=== PATIENT | male | born 1955 | race Caucasian/White ===

== ENCOUNTER 2025-05-19 10:24 | Emergency (ER) | payer MEDICARE, MEDICAID, SELFPAY ==
--- OUTSIDE RECORDS SUMMARY | 2025-04-10 10:36 | XMS_ITS | Continuity of Care Document ---
Author Organization [facility] in Address [address] [place] [address] Phone Care Team Providers Care Supervisor Alteration Workroom Name Role Phone Lab/Path Lab, Lab Unavailable Unavailable Allergies, Adverse Reactions, Alerts Substance Reaction Status Criticality No Known Allergies Active No Inform ation Medications Medication Instructions Dosage Effective Dates (start - stop) Status Comments metoprolol tartrate 25 mg tablet take 1 tablet by oral route 2 times every day 25 MG - Active lisinopril 40 mg tablet take 1 tablet by oral route every day 40 MG - Active famotidine 40 mg tablet take 1 tablet by oral route every day at bedtime 40 MG - Active amlodipine 5 mg tablet take 1 tablet (5MG) by oral route twice daily - Active Procedures Procedure Date ROUTINE VENIPUNCTURE NATRIURETIC PEPTIDE OFFICE ESTABLISHED-LEVEL 3-LOW TO MODERA TE SEVERIT REVIEW OF MEDS BY DOCTOR OR PHARMACIST J MED LIST DOCUMENTED IN EMR MOST RECENT SYSTOLIC BLOOD PRESSURE 130- 139 [facility] DIASTOLIC BLOOD PRESSURE 80-89 [facility] VISIT COMPLEXITY INHERENT TO AN E&M VISI T HEMOGLOBIN;GLYCOSYLATED AIC MOST RECENT A1C LEVEL LESS THAN 7 PHOSPHORUS PHOS- PHATE BLOOD PARATHORMONE PARATH- YROID HORMONE, COLBY LAB/LIPID PROFILE VITAMIN D, [id number] SCREENING PSA MICROALBUMIN,WESTLEY.,URINE LAB/CREATININE, URINE OFFICE/OUTPATIENT VISIT, EST REVIEW OF MEDS BY DOCTOR OR PHARMACIST J MED LIST DOCUMENTED IN EMR Systolic BP >= 140 Diastolic BP < 80 ANNUAL WELLNESS VISIT;SUBSEQUENT VISIT J BLOOD COUNT; HEMOGRAM AND PLATELET COUNT , AUTOMAT METABOLIC PANEL TOTAL CA ROUTINE VENIPUNCTURE COLORECTAL CANCER SCREENING; COLONOSOPY, NOT HIGH ROUTINE VENIPUNCTURE HEMOGLOBIN;GLYCOSYLATED AIC MOST RECENT A1C LEVEL LESS THAN 7 METABOLIC PANEL TOTAL CA OFFICE ESTABLISHED-LEVEL 3-LOW TO MODERA TE SEVERIT REVIEW OF MEDS BY DOCTOR OR PHARMACIST N MED LIST DOCUMENTED IN EMR Systolic BP < 130 Diastolic BP < 80 VISIT COMPLEXITY INHERENT TO AN E&M VISI T HEMOGLOBIN;GLYCOSYLATED AIC MOST RECENT A1C LEVEL LESS THAN 7 METABOLIC PANEL TOTAL CA ROUTINE VENIPUNCTURE ANNUAL WELLNESS VISIT;SUBSEQUENT VISIT M OFFICE/OUTPATIENT VISIT, EST REVIEW OF MEDS BY DOCTOR OR PHARMACIST M MED LIST DOCUMENTED IN EMR Systolic BP >= 130 and <= 140 Diastolic BP >= 80 and <= 90 OFFICE ESTABLISHED-LEVEL 3-LOW TO MODERA TE SEVERIT REVIEW OF MEDS BY DOCTOR OR PHARMACIST N ov MED LIST DOCUMENTED IN EMR Systolic BP < 130 Diastolic BP < 80 OFFICE ESTABLISHED-LEVEL 3-LOW TO MODERA TE SEVERIT REVIEW OF MEDS BY DOCTOR OR PHARMACIST N ov MED LIST DOCUMENTED IN EMR Systolic BP < 130 Diastolic BP < 80 ELI-IMPACTED CERUMEN ONE OR BOTH EARS N OFFICE/OUTPATIENT VISIT, EST REVIEW OF MEDS BY DOCTOR OR PHARMACIST N MED LIST DOCUMENTED IN EMR Systolic BP < 130 Diastolic BP >= 80 and <= 90 IRON, TOTAL TRANSFERRIN METABOLIC PANEL TOTAL CA FERRITIN,SERUM,COLBY URIC ACID BLOOD, CHEMICAL ROUTINE VENIPUNCTURE OFFICE/OUTPATIENT VISIT, EST REVIEW OF MEDS BY DOCTOR OR PHARMACIST O MED LIST DOCUMENTED IN EMR Systolic BP < 130 Diastolic BP < 80 HEP C SCREEN HIGH RISK/OTHER BLOOD COUNT; HEMOGRAM AND PLATELET COUNT , AUTOMAT LAB/LIPID PROFILE COMPLETE METABOLIC PANEL HEMOGLOBIN;GLYCOSYLATED AIC MOST RECENT A1C LEVEL LESS THAN 7 PHOSPHORUS PHOS- PHATE BLOOD NATRIURETIC PEPTIDE URIC ACID BLOOD, CHEMICAL MICROALBUMIN,WESTLEY.,URINE PARATHORMONE PARATH- YROID HORMONE, COLBY VITAMIN D, [id number] ROUTINE VENIPUNCTURE ANNUAL WELLNESS VISIT;INITIAL VISIT OFFICE/OUTPATIENT VISIT, EST REVIEW OF MEDS BY DOCTOR OR PHARMACIST S MED LIST DOCUMENTED IN EMR Systolic BP > 140 Diastolic BP < 80 OFFICE/OUTPATIENT VISIT, EST REVIEW OF MEDS BY DOCTOR OR PHARMACIST S MED LIST DOCUMENTED IN EMR Systolic BP >= 140 mmHg Diastolic BP < 90 mmHg ECHOGRAPHY, RETROPERITONEALB-SCAN,OR TELLY L TIME;COM SCREENING PSA LAB/LIPID PROFILE COMPLETE METABOLIC PANEL HEMOGLOBIN;GLYCOSYLATED AIC MOST RECENT A1C LEVEL WITHIN 12 MONTHS L ESS THAN 7 ADMINISTRATION FLU- MEDICARE FLUZONE HD HIGH DOSE PRE FILLED SYRINGE REVIEW OF MEDS BY DOCTOR OR PHARMACIST N Diastolic BP < 90 mmHg MED LIST DOCUMENTED IN EMR Systolic BP < 140 mmHg OFFICE/OUTPATIENT VISIT, EST OFFICE/OUTPATIENT VISIT, EST Systolic BP >= 130 and <= 140 Diastolic BP >= 80 and <= 90 URINALYSIS, AUTOMATED, WITH MICROSCOPY M OFFICE ESTABLISHED-LEVEL 3-LOW TO MODERA TE SEVERIT ROUTINE VENIPUNCTURE METABOLIC PANEL TOTAL CA PHOSPHORUS PHOS- PHATE BLOOD PARATHORMONE PARATH- YROID HORMONE, COLBY HEMOGLOBIN;GLYCOSYLATED AIC VITAMIN D, [id number] MOST RECENT A1C LEVEL WITHIN 12 MONTHS L ESS THAN 7 CULTURE BACTERIAL;AEROBIC ISOLATE ADDITI ONAL METHO LAB/URINE CULTURE OFFICE/OUTPATIENT VISIT, EST Systolic BP >= 130 and <= 140 2 Diastolic BP >= 80 and <= 90 URINALYSIS, AUTOMATED, WITH MICROSCOPY J SENSITIVITY STUDIES MICROTITER (MIC0 Sep CULTURE BACTERIAL;AEROBIC ISOLATE ADDITI ONAL METHO LAB/URINE CULTURE OFFICE-NEW, LEVEL 3-MODERATE Systolic BP > 140 Diastolic BP >= 80 and <= 90 MEASUREMENT OF POST-VOIDING RESIDUAL URI NE URINALYSIS W/O MICROSCOPYAUTOMATED CORONAVIRUS (COVID-19) SENSITIVITY STUDIES MICROTITER (MIC0 Aug LAB/URINE CULTURE CULTURE BACTERIAL;AEROBIC ISOLATE ADDITI ONAL METHO OFFICE ESTABLISHED-LEVEL 3-LOW TO MODERA TE SEVERIT Systolic BP >= 130 and <= 140 Diastolic BP >= 80 and <= 90 ELECTROCARD ROUTINE ECG AT LEAST 12 LEAD S BLOOD COUNT; HEMOGRAM AND PLATELET COUNT , AUTOMAT COMPLETE METABOLIC PANEL LAB/LIPID PROFILE TSH PROSTATE SPECIFIC ANTIGEN (PSA) 021 ROUTINE VENIPUNCTURE URINALYSIS W/O MICROSCOPYAUTOMATED OFFICE-NEW, LEVEL 3-MODERATE Systolic BP > 140 Diastolic BP >= 80 and <= 90 OFFICE ESTABLISHED-LEVEL 3-LOW TO MODERA TE SEVERIT X-RAY CHEST;SINGLE VIEW; TECH ONLY RADIOLOGIC EXAMINATION,CHEST:SINGLE VIEW , FRONTAL; OFFICE ESTABLISHED-LEVEL 3-LOW TO MODERA TE SEVERIT ROYA RETURN TO WORK PHYSICAL ROUTINE VENIPUNCTURE BASIC METABOLIC PANEL BLOOD COUNT; HEMOGRAM AND PLATELET COUNT , AUTOMAT PROSTATE SPECIFIC ANTIGEN (PSA) 013 THYROXINE;TOTAL TSH X-RAY CHEST;SINGLE VIEW; TECH ONLY RADIOLOGIC EXAMINATION,CHEST:SINGLE VIEW , FRONTAL; OFFICE ESTABLISHED-LEVEL 3-LOW TO MODERA TE SEVERIT AEROSOL OR VAPOR INHALATIONFOR SPUTUM MO BILIZATION ROUTINE VENIPUNCTURE BASIC METABOLIC PANEL ECHOGR SFT-TIS HEAD&NEC B-SCAN&/RE-LANNY W /IMAGE ROUTINE VENIPUNCTURE URINALYSIS W/O MICROSCOPYAUTOMATED BLOOD COUNT; HEMOGRAM AND PLATELET COUNT , AUTOMAT COMPLETE METABOLIC PANEL LAB/LIPID PROFILE TSH PROSTATE SPECIFIC ANTIGEN (PSA) 012 Advance Directives Directive Yes / No Effective Date File Name No Information Encounters Encounter Description Practice Location Reason(s) For Visit Diagnoses Date Provider Providers Copied on Encounter [facility], [address] [place] [address], [id number] , tel: [phone] [facility] [place] - 892 No Information 5 Lab/Path Lab Lab. . Referring Provider: Hari Byrne, [address], [place], [address]. tel:[phone] [place] [address], [address] [place] [address], [id number] , tel: [phone] [facility] - 858 No Information 5 Lab/Path Lab Lab. . Referring Provider: Hari Byrne, [address], [place], [address]. tel:[phone] OFFICE ESTABLISHED- LEVEL 3-LOW TO MODERATE SEVERIT [facility], [address] [place] [address], [id number] , tel: [phone] [facility] [place] - 893 .1 month (chief complaint) Essential (primary) hypertension Left atrial enlargementS hortness of breath 5 Skyler Walters. [address], [place], [id number], [place]. tel:[phone] Referring Provider: Hari Byrne, [address], [place], [address]. tel:[phone] [place] [address], [address] [place] [address], [id number] , [place] tel: [phone] [facility] - 858 No Information 5 Lab/Path Lab Lab. . Referring Provider: Hari Byrne, [address], [place], [address]. tel: [phone] OFFICE/OUTPA TIENT VISIT, EST [facility], [address] [place] [address], [place], [place], [id number] , [place] tel: [phone] [facility] [place] - 892 . 6 month (chief complaint) Impaired fasting glucoseMorbi d (severe) obesity due to excess caloriesEsse ntial (primary) hypertension Chronic kidney disease, stage 3aScreening PSA (prostate specific antigen) 5 Skyler Walters. [address], [place], [id number], [place]. tel: [phone] Referring Provider: Hari Byrne, [address] [place], [address]. tel: [phone] [place] [address], [address] [place] [address], [place], [place], [id number] , [place] tel: [phone] [facility] [place] - 892 . Medicare Wellness (chief complaint)[facility] preventive (chief complaint) Medicare annual wellness visit, subsequentCh ronic kidney disease, stage 3aMorbid (severe) obesity due to excess caloriesNSVT (nonsustaine d ventricular tachycardia) 5 Edvin Rivera. [address], [place], [id number], [place]. tel: [phone] Referring Provider: Hari Byrne, [address] [place], [address]. tel: [phone] [place] [address], [address] [place] [address], [place], [place], [id number] , [place] tel: [phone] [facility] [place] - 890 No Information 5 Skyler Walters. [address], [place], [id number], [place]. tel: [phone] [facility], [address] [facility], [place], [place], [id number] , [place] tel:[phone] [facility] - 858 No Information 4 Lab/Path Lab Lab. . Referring Provider: Mariusz Tyson, [address] [place] [address], [address]. tel: [phone] [facility], [address] [place] [address], [place], [place], [id number] , [place] tel:[phone] [facility] - 858 No Information 4 Lab/Path Lab Lab. . Referring Provider: Mariusz Tyson, [address] [place], [address]. tel: [phone] [facility], [address] [place] [address], [id number] , [place] tel: [facility] - 851 No Information 4 Heathchidiyaz Dunaway. [address] [place] [address], [place], [place], [id number], [place]. tel: [phone] Referring Provider: Emelyn Bailey, [address] [place] [address], [place], [address]. tel:[phone] [facility], [address] [place] [address], [place], [place], [id number] , [place] tel:[phone] [facility] [place] - 2 No Information 4 Lab/Path Lab Lab. . Referring Provider: Hari Byrne, [address], [place], [address]. tel:[phone] [facility], [address] [place] [address], [place], [place], [id number] , [place] tel:[phone] [facility] - 858 No Information 4 Lab/Path Lab Lab. . Referring Provider: Hari Byrne, [address], [place], [address]. tel:[phone] [facility] OFFICE ESTABLISHED- LEVEL 3-LOW TO MODERATE SEVERIT [facility], [address] [place] [address], [id number] , [place] tel: [phone] [facility] [place] - 892 . refill (chief complaint) Impaired fasting glucoseMorbi d (severe) obesity due to excess caloriesScre ening PSA (prostate specific antigen) 4 Skyler Walters. [address], [place], [id number], [place]. tel:[phone] Referring Provider: Hari Byrne, [address], [place], [address]. tel:[phone] [place] [address], [address] [place] [address], [id number] , [place] tel: [phone] [facility] - 858 No Information 4 Lab/Path Lab Lab. . Referring Provider: Hari Byrne, [address], [place], [address]. tel:[phone] [place] [address], [address] [place] [address], [id number] , [place] tel: [phone] [facility] [place] - 891 No Information 4 Lab/Path Lab Lab. . Referring Provider: Hari Byrne, [address], [place], [address]. tel:[phone] [place] [address], [address] [place] [address], [place], [id number] , [place] tel:[phone] [facility] [place] - 898 .MW (chief complaint) Chronic kidney disease, stage 3aScreening PSA (prostate specific antigen)[facility] annual wellness visit, subsequent 4 David Rivera. [address], [place], [id number], [place]. tel:[phone] Referring Provider: Hari Byrne, [address], [place], [address]. tel:[phone] OFFICE/OUTPA TIENT VISIT, [facility], [address] [place] [address], [id number] , [place] tel: [phone] [facility] [place] - 892 .f/u HTN (chief complaint) Essential (primary) hypertension Chronic kidney disease, stage 3aImpaired fasting glucose 4 Skyler Walters. [address], [place], [place], [id number], [place]. tel:[phone] Referring Provider: Hari Byrne, [address], [place], [address]. tel:[phone] OFFICE ESTABLISHED- LEVEL 3-LOW TO MODERATE [facility], [address] [place] [address], [id number] , [place] tel: [phone] [facility] [place] - 892 .2 week f/u right ear (chief complaint) Other otitis externa, right ear 3 Skyler Hari. [address], [place], [id number], [place]. tel:[phone] Referring Provider: Hari Byrne, [address], [place], [address]. tel:[phone] OFFICE ESTABLISHED- LEVEL 3-LOW TO MODERATE [facility], [address] [place] [address], [id number] , [place] tel: [phone] [facility] [place] - 892 . ears (chief complaint) Other otitis externa, right ear 3 Skyler Hari. [address], [place], [id number], [place]. tel:[phone] Referring Provider: Hari Byrne, [address], [place], [address]. tel:[phone] [place] [address], [address] [place] [address], [id number] , [place] tel: [phone] [facility] [place] - 897 . right ear pain (chief complaint) Impacted cerumen, right ear 3 Skyler Walters. [address], [place], [id number], [place]. tel:[phone] Referring Provider: Hari Byrne, [address], [place], [address]. tel:[phone] OFFICE/OUTPA TIENT VISIT, [facility], [address] [place] [address], [place], [place], [id number] , [place] tel: [phone] [facility] - 659 .right ear pain (chief complaint) Right otitis media, unspecified otitis media typeAcute diffuse otitis externa of right ear 3 Anoop Hurley. [address], [place], [id number], [place]. tel:[phone] Referring Provider: Hari Byrne, [address], [place], [address]. tel:[phone] [place] [address] and [facility], [address] [place] [address], [id number] , [place] tel: [phone] [facility] - 858 No Information 3 Lab/Path Lab Lab. . Referring Provider: Hari Byrne, [address], [place], [address]. tel:[phone] [place] [address] and [facility], [address] [place] [address], [id number] , [place] tel: [phone] [facility] [place] - 118 No Information 3 Lab/Path Lab Lab. . Referring Provider: Hari Byrne, [address], [place], [address]. tel:[phone] OFFICE/OUTPA TIENT VISIT, EST [facility], [address] [place] [address], [id number] , [place] tel:[phone] [facility] [place] - a (chief complaint) GoutChronic kidney disease, stage 3aEssential (primary) hypertension 3 Skyler Walters. [address], [place], [id number], [place]. tel: [phone] Referring Provider: Hari Byrne, [address], [place], [address]. tel: [address] [place] [address] and [facility], [address] [place] [address], [id number] , [place] tel:[phone] [facility] - 858 No Information 3 Lab/Path Lab Lab. . Referring Provider: Juliet Davalos, [address], [place], [address]. tel: [address] [place] [address] and [facility], [address] [place] [address], [id number] , [place] tel:[phone] [facility] - 858 No Information 3 Lab/Path Lab Lab. . Referring Provider: Hari Byrne, [address], [place], [address]. tel: [address] [place] [address] and [facility], [address] [place] [address], [id number] , [place] tel:[phone] [facility] [place] - No Information 3 Lab/Path Lab Lab. . Referring Provider: Juliet Davalos, [address], [place], [address]. tel: [address] [place] [address] and [facility], [address] [place] [address], [id number] , [place] tel:[phone] [facility] [place] - 892 a Medicare Wellness. (chief complaint) Unspecified osteoarthrit is, unspecified siteEssentia l (primary) hypertension Chronic kidney disease, stage 3aImpaired fasting glucoseNeed for hepatitis C screening testMorbid (severe) obesity [facility] annual [facility], initial Sep- 3 Anoop Hurley. [address], [place], [id number], [place]. tel:[phone] Referring Provider: Hari Byrne, [address], [place], [address]. tel:[phone] OFFICE/OUTPA TIENT VISIT, [facility], [address] [place] [address], [id number] , [place] tel: [phone] [facility] [place] - 669 .medication concerns (chief complaint) Essential (primary) hypertension Impaired fasting glucoseChron ic kidney disease, stage 3aGoutShortn ess of breathRectal bleed Sep- 3 Skyler Walters. [address], [place], [id number], [place]. tel:[phone] Referring Provider: Hari Byrne, [address], [place], [address]. tel:[phone] OFFICE/OUTPA TIENT VISIT, [facility], [address] [place] [address], [id number] , [place] tel: [phone] [facility] [place] - 564 . 10 month checkup (chief complaint) Essential (primary) hypertension Shortness of breathGoutIn somniaRectal bleed Sep-0 3 Skyler Walters. [address], [place], [id number], [place]. tel:[phone] Referring Provider: Hari Byrne, [address], [place], [address]. tel:[phone] [place] [address], [address] [place] [address], [id number] , [place] tel: [phone] [facility] - 888 No Information 2 [facility] . . Referring Provider: Hari Byrne, [address], [place], [address]. tel:[phone] [place] [address], [address] [place] [address], [place], [place], [id number] , [place] tel: [phone] [facility] - 858 No Information 2 Lab/Path Lab Lab. . Referring Provider: Hari Byrne, [address], [place], [address]. tel:[phone] OFFICE/OUTPA TIENT VISIT, [facility], [address] [place] [address], [place], [place], [id number] , [place] tel: [phone] [facility] [place] - 256 . med refills (chief complaint) Impaired fasting glucoseChron ic kidney disease, stage 3aEssential (primary) hypertension Encounter for screening for malignant neoplasm of prostate 2 Skyler Walters. [address], [place], [id number], [place]. tel:[phone] Referring Provider: Hari Byrne, [address], [place], [address]. tel:[phone] OFFICE/OUTPA TIENT VISIT, [facility], [address] [place] [address], [place], [place], [id number] , [place] tel: [phone] [facility] [place] - 078 . a (chief complaint) Impaired fasting glucoseOther otitis externa, left ear [place]- 2 Skyler Walters. [address], [place], [id number], [place]. tel:[phone] Referring Provider: Hari Byrne, [address], [place], [address]. tel:[phone] [place] [address], [address] [place] [address], [place], [place], [id number] , [place] tel: [phone] [facility] - 891 No Information 2 Lab/Path Lab Lab. . Referring Provider: Rosalio Winkler, [address] [place] [address], [address]. tel:[phone] OFFICE ESTABLISHED- LEVEL 3-LOW TO MODERATE SEVERIT [facility], [address] [place] [address], [id number] , [place] tel: [phone] [facility] - 891 .4 MON UA (chief complaint) UTI 2 Matthew Santamaria. [address] [place] [address], [id number], [place]. tel:[phone] Referring Provider: Rosalio Winkler, [address] [place] [address], [address]. tel:[phone] [facility], [address] [place] [address], [id number] , [place] tel: [phone] [facility] [place] - 892 No Information 2 Lab/Path Lab Lab. . Referring Provider: Hari Byrne, [address], [place], [address]. tel:[phone] [place] [address], [address] [place] [address], [id number] , [place] tel: [phone] [facility] - 857 No Information 2 Lab/Path Lab Lab. . Referring Provider: Hari Byrne, [address], [place], [address]. tel:[phone] OFFICE/OUTPA TIENT VISIT, EST [facility], [address] [place] [address], [id number] , [place] tel:[phone] [facility] [place] - 898 .L ear pain (chief complaint) Other otitis externa, left earChronic kidney disease, stage 3aHyperglyce miaUTIImpair ed fasting glucose 0 2 Skyler Walters. [address], [place], [id number], [place]. tel:[phone] Referring Provider: Hari Byrne, [address], [place], [address]. tel:[phone] [facility], [address] [place] [address], [id number] , [place] tel: [phone] [facility] - 891 No Information 2 Lab/Path Lab Lab. . Referring Provider: Rosalio Winkler, [address] [place] [address], [address]. tel:[phone] [facility], [address] [place] [address], [id number] , [place] tel:[phone] [facility] - 891 UTI 2 Matthew Santamaria. [address] [place] [address], [id number], [place]. tel:[phone] OFFICE-NEW, LEVEL 3-MODERATE [facility], [address] [place] [address], [id number] , [place] tel:[phone] [facility] - 891 . UTI (chief complaint) UTI 2 Matthew Santamaria. [address] [place] [address], [id number], [place]. tel:[phone] Referring Provider: Hari Byrne, [address], [place], [address]. tel:[phone] [place] [address] and [facility], [address] [place] [address], [id number] , [place] tel:[phone] [facility] [place] - 892 No Information 1 Lab/Path Lab Lab. . Referring Provider: Hari Byrne, [address], [place], [address]. tel:[phone] [facility], [address] [place] [address], [id number] , [place] tel:[phone] [facility] - 858 No Information 1 Lab/Path Lab Lab. . Referring Provider: Hari Byrne, [address], [place], [address]. tel:[phone] OFFICE ESTABLISHED- LEVEL 3-LOW TO MODERATE SEVERIT [facility], [address] [place] [address], [id number] , [place] tel: [phone] [facility] [place] - 898 .Trouble Voiding (chief complaint) UTIAtrial fibrillation 1 Skyler Walters. [address], [place], [place], [id number], [place]. tel:[phone] Referring Provider: Hari Byrne, [address], [place], [address]. tel:[phone] [place] [address], [address] [place] [address], [id number] , [place] tel: [phone] [facility] - 858 No Information 1 Lab/Path Lab Lab. . Referring Provider: Hari Byrne, [address], [place], [address]. tel:[phone] [place] [address], [address] [place] [address], [place], [place], [id number] , [place] tel: [phone] [facility] [place] - 892 No Information 1 Lab/Path Lab Lab. . Referring Provider: Hari Byrne, [address], [place], [address]. tel:[phone] OFFICE-NEW, LEVEL 3-MODERATE [facility], [address] [place] [address], [id number] , [place] tel: [phone] [facility] [place] - 890 .New Patient (chief complaint) Essential (primary) hypertension Encounter for screening for malignant neoplasm of prostate 1 Skyler Walters. [address], [place], [id number], [place]. tel:[phone] Referring Provider: Hari Byrne, [address], [place], [address]. tel:[phone] OFFICE ESTABLISHED- LEVEL 3-[facility], [address] [place] [address], [id number] , tel:[phone] [facility] [place] - 892 Cough (chief complaint) Bronchitis, Acute Feb-0 4-201 4 Skyler Walters. [address], [place], [id number], [place]. tel:[phone] Referring Provider: Hari Uribe Caty, [address], [place], [address]. tel:[phone] [place] [address] and [facility], [address] [place] [address], [id number] , tel:[phone] [facility] - 888 No Information 8-201 4 Xray [place]. . Referring Provider: Hari Byrne, [address], [place], [address]. tel:[phone] OFFICE ESTABLISHED- LEVEL 3-LOW TO MODERATE [facility] and [facility], [address] [place] [address], [place], [place], [id number] , [place] tel:[phone] [facility] [place] - 892 Pneumonia (chief complaint) SOLITARY PULMONARY NODULEPneumo luis angel 0 8-201 4 Skyler Walters. [address], [place], [place], [id number], [place]. tel:[phone] Referring Provider: Hari Uribe Caty, [address], [place], [address]. tel:[phone] Coll and [facility], [address] [place] [address], [id number] , [place] tel: [phone] [facility] [place] - 892 SOLITARY PULMONARY NODULE 0 3-201 4 Lab [place]. . Referring Provider: Hari Byrne, [address], [place], [address]. tel: [address] [place] [address] RETURN TO WORK PHYSICAL [facility], [address] [place] [address], [id number] , [place] tel: [phone] [facility] [place] - 892 Return to work - [place] (chief complaint) Routine Medical Exam 4 Skyler Walters. [address], [place], [place], [id number], [place]. tel: [phone] Referring Provider: Hari Byrne, [address], [place], [address]. tel: [address] [place] [address], [address] [place] [address], [id number] , [place] tel:[phone] [facility] [place] - 892 No Information 3 Lab [place]. . Referring Provider: Hari Byrne, [address], [place], [address]. tel: [address] [place] [address], [address] [place] [address], [id number] , [place] tel:[phone] [facility] - 888 No Information 3 [facility]ray [place]. . Referring Provider: Hari Byrne, [address], [place], [address]. tel: [phone] OFFICE ESTABLISHED- LEVEL 3-LOW TO MODERATE SEVERIT [facility], [address] [place] [address], [id number] , [place] tel: [phone] [facility] [place] - 892 hypertension , wheezing (chief complaint) Hypertension , BenignNonspe cific abnormal results of function study of thyroidWheez ingScreening for malignant neoplasms of the prostatePneu monia 3 Skyler Walters. [address], [place], [id number], [place]. tel: [phone] Referring Provider: Hari Byrne, [address], [place], [address]. tel: [phone] [place] [address] and [facility], [address] [place] [address], [id number] , [place] tel:[phone] [facility] [place] - 892 No Information 2 Lab [place]. . Referring Provider: Hari Byrne, [address], [place], [address]. tel: [address] [place] [address] and [facility], [address] [place] [address], [id number] , [place] tel:[phone] [facility] [place] - 892 LEFT 3RD FINGER, HYPERTENSION (chief complaint) Hypertension , Benign Jun- 2 Skyler Hari. [address], [place], [place], [id number], [place]. tel: [phone] Referring Provider: Hari Byrne, [address], [place], [address]. tel: [address] [place] [address] and [facility], [address] [place] [address], [id number] , [place] tel:[phone] [facility] - 888 No Information 2 Ultrasound .. . Referring Provider: Hari Byrne, [address], [place], [address]. tel: [address] [place] [address] and [facility], [address] [place] [address], [id number] , [place] tel:[phone] [facility] [place] - 892 Nonspecific abnormal results of function study of thyroid Dec- 2 Skyler Hari. [address], [place], [id number], [place]. tel:[phone] [facility] and [facility], [address] [place] [address], [id number] , [place] tel:[phone] [facility] [place] - 892 No Information 2 Lab [place]. . Referring Provider: Hari Byrne, [address], [place], [address]. tel:[phone] [facility], [address] [place] [address], [id number] , tel: [phone] [facility] - 2 Sinus, hypertension (chief complaint) Hypertension , BenignScreen ing for malignant neoplasms of the prostate 2 Skyler Walters. [address], [place], [id number], [place]. tel:[phone] Referring Provider: Hari Byrne, [address], [place], [address]. tel:[phone] [facility], [address] [place] [address], [id number] , tel: [phone] Conversion Acute sinusitis, unspecifiedA cute pharyngitisA llergic rhinitis, cause unspecifiedB enign essential hypertension Osteoarthros is, unspecified whether generalized or localized, involving unspecified siteObesity, unspecified 1 Conversion Conversion. . Family History Family Member Type Diagnosis Age At Onset Father Problem hypertension Father Problem Cancer Immunizations Vaccine Date Status Comments Influenza, quadrivalent, hig h dose, injectable, split virus, preservative free, 0.7 mL dose, Fluzone High-Dose Quad administered Source: New Immuniza tion Record Td (7 yrs or older) administered Source: New Immunization Record Payers Payer name Insurance type Covered democrat ID Authoriza tion(s) [facility] [employer] CARE PLANS [id number] MEDICARE PART B [place] ARAM FERNANDEZ [id number] Social History Type Description Quantity Date Captured Comments Sex Male Smoking Status No Information Chief Complaint And Reason For Visit No Information Reason For Referral Reason For Referral No Information Plan Of Treatment Date Type Action Status Referral Ordered: US THYROID Appointment date/timeframe: 01/21/2012 ordered Future Order: Lab Order PSA SCRE RAKESH (MEDICARE ONLY) ([id number]), Sent on: Sent Future Order: Lab Order ANILA CAMERON (MEDICARE ONLY) ([id number]), Sent on: Sent Future Order: Radiology Order Ch est X-ray (two views) ([id number]), Ordered on: Ordered Future Order: Radiology Order Ch est X-ray (two views) ([id number]), Ordered on: Ordered Future Order: Radiology Order US THYROID ([id number]), Ordered on: Ordered History Of Present Illness Encounter Date Complaint History Of Prese nt Illness .1 month Pt. is here for follow-up of uncontrolled hypertension. He has occ. shortness of breathand occ. left atrial enlargement on echo. Pt. is compliant with medication. No side effects.Physical Exam:General- Well developed, obese, in no acute distress, active and alert.CV- Regular rate and rhythm without murmur, normal S1/S2.Lungs- Bilateral clear to auscultation, normal respiratory rate and effort, normal I:E ratio.Extremities- No edema.Neurologic- Cranial nerves, motor function grossly intact.Preventive CareCOLONOSCOPY- 08/07 NormalCARDIAC CATH 09/06 [place] HeartPSA 02/27/25 [id number] 02/27/25 5.3LDL 02/27/25 105/2MICROALBUMIN 02/27/25 2.1EYE EXAM ORDERFLU REFUSEDPNEUMOVAX 05/04PREVNAR 20 REFUSEDSHINGRIX REFUSEDSMOKER- QUIT 1992MEDICARE WELLNESS 02/27/25 . 6 month Pt. is here for follow-up of impaired fasting glucose, CKD and morbid obesity.He has gained 7 more pounds. His blood pressure is worse today. Pt. has not been exercising. Pt. denies symptoms of hyper and hypoglycemia. Physical Exam:General- Well developed, obese, in no acute distress, active and alert.CV- Regular rate and rhythm without murmur, normal S1/S2.Lungs- Bilateral clear to auscultation, normal respiratory rate and effort, normal I:E ratio.Extremities- No edemaNeurologic- Cranial nerves, motor function grossly intactPreventive CareCOLONOSCOPY- 2009 Normal- ORDERSTRESS TEST refused, CARDIAC CT CALCIUM SCOREPSA 07/19/24 [id number] 07/19/24 pendingLDLMICROALBUMINEYE EXAMFLU REFUSEDPNEUMOVAX - 05/04PREVNAR 20 REFUSEDSMOKER- QUIT 1992MEDICARE WELLNESS 02/12/24 . Medicare Wellness Pt comes in today for annual Medicare wellness exam.Copy of written schedule of screening services covered by Medicare Part B given to patient.Provided health advice/gave referral for Safety Issues, Depression counseling as needed.Discussed in detail the last cardiovascular, diabetes, prostate cancer, colon cancer, and osteoporosis screening and when the next should occur.Discussed in detail immunization schedule and recommendations for flu, pneumonia, hepatitis. Discussed need for glaucoma screening annually as needed.Reviewed PHQ-9 for depression.Reviewed cognitive impairment screening.Reviewed safety and fall risk assessment, advance care planning, and activities of daily living.Preventive CareCOLONOSCOPY- 08/07, REPEAT STRESS TEST refused, CARDIAC CT CALCIUM SCOREPSA 2.043 08/05, ORDERED 02/27/25A1C 07/19/24LDL 06/06, 98/2MICROALBUMINEYE EXAM- UNCERTAIN, ADVISED 02/27/25PHQ-9- 02/27/25- 12/08FLU REFUSEDPNEUMOVAX - 05/04PREVNAR REFUSEDSMOKER- QUIT 1992AAA SCREEN- REFUSED 02/27/25MEMORY SCREEN- 01/16, 02/27/25MEDICARE WELLNESS 02/27/25 medicare preventive Depression s creening score was 2. The patient has not fallen in the last year. The patient has smoke detectors, carbon monoxide detectors in the home. Patient is not an Opioid user. Patient's self assessment of their overall health is Fair. The patient does have problems with their hearing. Does not have hearing aids. Daily servings consumed of Fruits/Vegetables: 2-3, Meats: 2, Grains/Cereals/Fiber: 1, High Fat Foods: 2. Current providers/suppliers regularly involved in your care: - Providers: Dr uribe - Medical Equipment Suppliers: [facility] - Home Health Agency: None - Other Medical Care Providers: None . refill Pt. is here for follow-up of impaired fasting glucose and now has morbid obesity.He has gained 15 pounds. Pt. has not been exercising. Pt. denies symptoms of hyper and hypoglycemia. Physical Exam:General- Well developed, obese, in no acute distress, active and alert.CV- Regular rate and rhythm without murmur, normal S1/S2.Lungs- Bilateral clear to auscultation, normal respiratory rate and effort, normal I:E ratio.Extremities- No edemaNeurologic- Cranial nerves, motor function grossly intact .MW Pt comes in [facility] for annual Medicare wellness exam.Copy of written schedule of screening services covered by Medicare Part B given to patient.Provided health advice/gave referral for tobacco cessation, DM self-management, Safety Issues, Depression counseling as needed.Discussed in detail the last cardiovascular, diabetes, prostate cancer, colon cancer, and osteoporosis screening and when the next should occur.Discussed in detail immunization schedule and recommendations for flu, pneumonia, hepatitis. Discussed need for glaucoma screening annually as needed.Reviewed PHQ-9 for depression.Reviewed cognitive impairment screening.Reviewed safety and fall risk assessment, advance care planning, and activities of daily living. Discussed need for lung cancer screening with Low Dose CT annually as needed. Comments: Justyn aponte: Preventive CareCOLONOSCOPY- 2009 Normal- REPEAT REFUSEDSTRESS TEST UPCOMINGPSA 08/05 normalFLU REFUSEDPNEUMOVAX 05/04SMOKER- QUIT 1992CXR- 09/27 [facility] 05/28/23 .f/u HTN Pt. is here for follow-up of controlled hypertension and he says it has been worsethe past couple of weeks. He wants his CKD and IFG checked.Pt. has no complaints. Pt. is compliant with medication. No side effects.Physical Exam:General- Well developed, obese, in no acute distress, active and alert.CV- Regular rate and rhythm without murmur, normal S1/S2.Lungs- Bilateral clear to auscultation, normal respiratory rate and effort, normal I:E ratio.Extremities- No edema.Neurologic- Cranial nerves, motor function grossly intact. Comments: Justyn ts: Preventive CareCOLONOSCOPY- 2009 Normal- REPEAT REFUSEDSTRESS TEST UPCOMINGPSA 08/05 normalFLU REFUSEDPNEUMOVAX 05/04SMOKER- QUIT 09/27 NormalMEDICARE WELLNESS 05/28/23 Comments: Preve ntive CareCOLONOSCOPY- 2009 Normal- REPEAT REFUSEDSTRESS TEST UPCOMINGPSA 08/05 normalFLU REFUSEDPNEUMOVAX 05/04SMOKER- QUIT 09/27 [facility] 05/28/23 .2 week f/u right ear Pt. is her for follow-up of otitis externa and has no pain buthas muffled hearing. Pt. has had no fever over 100.4. Physical Exam:General- Well developed, obese, in no acute distress, active and alert.HEENT- Normocephalic, Atraumatic, EOMI, PERRLA, right EAC filled with debris that was washed out to reveal thickened right TM, left TM clearNormal nasal structure and mucosa, oral cavity/oropharynx clearNeck- Supple, No bilateral cervical lymphadenopathy, No nuchal rigidity.CV- Regular rate and rhythm without murmur, normal S1/S2.Lungs- Bilateral clear to auscultation, normal respiratory rate and effort . ears Pt. is her for f ollow-up and is still having right ear pain. Pt. has had no fever over 100.4. Pt. has used no treatment.Physical Exam:General- Well developed, obese, in no acute distress, active and alert.HEENT- Normocephalic, Atraumatic, EOMI, PERRLA, right EAC swollen and filled with debris obscuring right TM, left TM clearNormal nasal structure and mucosa, oral cavity/oropharynx clearNeck- Supple, No bilateral cervical lymphadenopathy, No nuchal rigidity.CV- Regular rate and rhythm without murmur, normal S1/S2.Lungs- Bilateral clear to auscultation, normal respiratory rate and effort Comments: Preven tive CareCOLONOSCOPY- 2009 Normal- REPEAT REFUSEDSTRESS TEST UPCOMINGPSA 08/05 normalFLU REFUSEDPNEUMOVAX 05/04SMOKER- QUIT 09/27 NormalOH[facility]LL[facility] 05/28/23 . right ear pain Pt. complains o f right ear pain and hearing loss for the past 9 days.No trauma. No other symptoms. He has been taking augmentin and corticosporin oticwith no improvement. Physical Exam:Ears- right cerumen impaction noted and removed with instrumentation to reveal dull tympanic membranes. No complication. Comments: Preven tive CareCOLONOSCOPY- 2009 Normal- REPEAT REFUSEDPSA 08/05 normalFLU REFUSEDPNEUMOVAX 05/04SMOKER- QUIT 09/27 Normal .right ear pain Pt. is here for right ear pain. Reports canal and deep inside ear is painful. Physical Exam:General- Well developed, well nourished-- obese, in no acute distress, active and alert.Ears - otitis externa right side. CV- Regular rate and rhythm without murmur, normal S1/S2.Lungs- Bilateral clear to auscultation, normal respiratory rate and effort, normal I:E ratio.Extremities- No edema.Neurologic- Cranial nerves, motor function grossly intact. Comments: Preven tive CareCOLONOSCOPY- 2009 Normal- REPEAT REFUSEDPSA 08/05 normalFLU REFUSEDPNEUMOVAX 05/04SMOKER- QUIT 09/27 Normal a Pt. is here for follow-up of hypertension after medication adjustment.His diuretic was stopped due to gout and renal insufficiency. Pt. has no complaints. Pt. is compliant with medication. No side effects.Physical Exam:General- Well developed, obese, in no acute distress, active and alert.CV- Regular rate and rhythm without murmur, normal S1/S2.Lungs- Bilateral clear to auscultation, normal respiratory rate and effort, normal I:E ratio.Extremities- No edema.Neurologic- Cranial nerves, motor function grossly intact. a Medicare Wellness. Pt comes in today for annual Medicare wellness exam.Copy of written schedule of screening services covered by Medicare Part B given to patient.Provided health advice/gave referral for tobacco cessation, DM self-management, Safety Issues, Depression counseling as needed.Discussed in detail the last cardiovascular, diabetes, prostate cancer, colon cancer, and osteoporosis screening and when the next should occur.Discussed in detail immunization schedule and recommendations for flu, pneumonia, hepatitis. Discussed need for glaucoma screening annually as needed.Reviewed PHQ-9 for depression.Reviewed cognitive impairment screening.Reviewed safety and fall risk assessment, advance care planning, and activities of daily living. Comments: Justyn ts: Preventive CareCOLONOSCOPY- 2009 Normal- REPEAT REFUSEDPSA 07/18/21 normalFLU REFUSEDPNEUMOVAX 05/04SMOKER- QUIT 09/27 Normal Comments: Justyn ts: Preventive CareCOLONOSCOPY- 2009 Normal- REPEAT REFUSEDPSA 07/18/21 normalFLU REFUSEDPNEUMOVAX 05/04SMOKER- QUIT 09/27 Normal .medication concerns Pt. is here for follow-up of uncontrolled hypertension after switching HCTZto amlodipine due to gout. He needs labs for impaired fasting glucoseand CKD. Pt. has been having some rectal bleeding but he refuses to do a colonoscopy. He has not yet scheduled his cardiology appointment. Pt. is compliant with medication. No side effects.Physical Exam:General- Well developed, obese, in no acute distress, active and alert.CV- Regular rate and rhythm without murmur, normal S1/S2.Lungs- Bilateral clear to auscultation, normal respiratory rate and effort, normal I:E ratio.Extremities- No edema.Neurologic- Cranial nerves, motor function grossly intact. . 10 month checkup Pt. is here f or follow-up of uncontrolled hypertension and needs a medication adjustment.He is getting frequent gout attacks with the HCTZ. He is not sleeping and says the 50 mg trazodone was ineffective. He complains of dyspnea with exertion and has not had a stresst test. Pt. has been having some rectal bleeding and is now interested in a colonoscopy. Pt. is compliant with medication. No side effects.Physical Exam:General- Well developed, obese, in no acute distress, active and alert.CV- Regular rate and rhythm without murmur, normal S1/S2.Lungs- Bilateral clear to auscultation, normal respiratory rate and effort, normal I:E ratio.Extremities- No edema.Neurologic- Cranial nerves, motor function grossly intact. Comments: Preven tive CareCOLONOSCOPY- 2009 Normal- REPEAT REFUSEDPSA 07/18/21 normalFLU REFUSEDPNEUMOVAX 05/04SMOKER- QUIT 09/27 Normal . med refills (comments) noemí CamposCOLONOSCOPY- 2009 Normal- REPEAT REFUSEDPSA 07/18/21 normalFLU REFUSEDPNEUMOVAX 05/04SMOKER- QUIT 09/27 Normal . med refills Pt. is here for follow-up of hypertension, CKD 3a and impaired fasting glucose.Pt. has not been exercising. Pt. denies symptoms of hyper and hypoglycemia. Physical Exam:General- Well developed, obese, in no acute distress, active and alert.CV- Regular rate and rhythm without murmur, normal S1/S2.Lungs- Bilateral clear to auscultation, normal respiratory rate and effort, normal I:E ratio.Extremities- No edemaNeurologic- Cranial nerves, motor function grossly intact . a Pt. is here for follow-up of otitis externa and was found to have impairedfasting glucose. His ear pain has resolved. No fever, chest pain or shortness of breath. No new complaints. Physical Exam:General- Well developed, obese, in no acute distress, active and alert.HEENT- Normocephalic, Atraumatic, EOMI, PERRLA, Bilateral tympanic membranes clear with good landmarks, Normal nasal structure and mucosa, oral cavity/oropharynx clear, no sinus tenderness to palpation.Neck- Supple, No lymphadenopathy, No nuchal rigidity.CV- Regular rate and rhythm without murmur, normal S1/S2.Lungs- Bilateral clear to auscultation, normal respiratory rate and effort, normal I:E ratio. .4 MON UA 66 y/o maleRecen t UTIWell treated with bactrimUA neg todayNo LUTSGood FOSNO urgency, frequency ---66 y/o maleRecent admission with ecoli UTI, COVID 19, afibRecently completed omnicef (10 day course)No current LUTSDenies hematuriaDenies [id number] 21ccUA with a few clumps WBCHTNAfibOA .L ear pain Preventive [facility] OLONOSCOPY- 2009 Normal- REPEAT REFUSEDPSA 07/18/21 normalFLU REFUSEDPNEUMOVAX 05/04SMOKER- QUIT 09/27 Normal . UTI 66 y/o maleRecen t admission with ecoli UTI, COVID 19, afibRecently completed omnicef (10 day course)No current LUTSDenies hematuriaDenies ebtimisVWY7QKX 21ccUA with a few clumps WBCHTNAfibOA .Trouble Voiding (comments) Prev entive CareCOLONOSCOPY- 2009 Normal- REPEAT REFUSEDPSA 07/18/21 normalFLU REFUSEDPNEUMOVAX 05/04SMOKER- QUIT 09/27 Normal .Trouble Voiding Pt. complains o f difficulty with urination, subjective fever, nausea, vomiting, back pain for the last 5 days. No treatment. Physical Exam:General- well developed, obese, in no acute distress, active and alertCV- Increased irregular rate and rhythm without murmur, nl S1/H9Cvcfz- Bilateral clear to auscultation, normal respiratory rate and effortAbdomen- Soft, positive bowel sounds, no tenderness. No hepatosplenomegaly, masses, or hernias. No costovertebral angle tenderness. ELECTROCARDIOGRAM:Atrial fib with rapid vent response. Normal axis. No hypertrophy. ST segment elevation III, avr, avl,ST segment depression I, II, V2-V6.See chart for EKG. .New Patient (comments) Preventi ve [facility] HealthcareCOL[facility]- 2009 Normal- REPEAT 2020PSA 09/13/13TSH 09/13/13- NormalFLU REFUSEDSMOKER- QUIT 1992ANGIOSCREEN ORDERAPNEA LINK ORDER09/27 Normal .New Patient Pt. is here to e stablish patient-physician relationship. Pt. needs management of chronic medical problems including needs refills on meds for hypertension.Physical Exam:General- Well developed, obese, in no acute distress, active and alertHEENT- Normocephalic, Atraumatic, EOMI, PERRLA, Bilateral tympanic membranes clear with good landmarks, Normal nasal structure and mucosa, oral cavity/oropharynx clearNeck- Supple, No lymphadenopathy, No nuchal rigidityCV- Regular rate and rhythm without murmur, normal S1/R7Boapu- Bilateral clear to auscultation, normal respiratory rate and effort, normal I:E ratioAbdomen- Soft, positive bowel sounds, no guarding, rigidity, or rebound, no tenderness.No hepatosplenomegaly, masses, or hernias. No costovertebral angle tendernessMusculoskeletal- No edema, no clubbing, no cyanosis.Neurologic- cranial nerves 2-12 intact, motor strength 5/5 throughout, bilateral 2+ patellar reflexes, normal Romberg with no pronator drift, cerebellar intact. Functional Status Date Functional Assessmen t No Information Instructions Date Instruction Additional Infor mira continue current med s and keep all f/u appts with Dr. Uribe and cardiology Related to NSVT (nonsustained ventricular tachycardia) when your blood suga r increases your hunger increases. Choose foods low in carbs and drink more water. Think about what your grandparents ate on their farm in 1989 and eat like they did. Meats, vegetables, cheese, eggs, and limited fruits. If it is on a shelf at a local store it is probably not what was on the farm in 1899. Shelf items should be limited to water, nuts, and coffee. Frozen vegetables are ok, look for canned vegetables without salt. If it's white and not cheese, avoid it. Lower carb choices include: salad greens, carrots, green pepper, green beans, green pepper. Broccoli and cauliflower are higher in healthy carbs. Protein and fat sources: cheese, lean protein (chicken), cottage cheese, nuts, nut butter, etc. Low glycemic fruits: berries. Every day is a new day to make healthy food choices. Add 30 mins of exercise per day. Use range of motion with your arms and legs. Keep all follow up appts with Dr. Uribe. Related to Morbid (severe) obesity due to excess calories Thank you for partic ipating in you annual Medicare Wellness exam. I look forward to seeing you next year. Report to the office for follow up the day after all Emergency room visits, urgent care visits, or hospitalizations. Keep a paper list of the above visits and why you were seen over every new 12 month period.Include your discharge date of your last hospitalization and the primary diagnosis. Please report all new surgeries. Wear your seatbelt to decrease safety risks from automobile accidents.Report if you feel unsafe in your home, add smoke detector/fire extinguisher.It is important to go outside every day if you are able. Report if you have to choose between food, utilities, medications, or transportation.Report if lack of transportation is prohibiting you from accessing a doctor's appointment or pharmacy. Report if you're having to cut pills or skip doses because you cannot afford medication.Report a 10 pound weight change in less than 6 months. Stay Well. Related to Medicare annual wellness visit, subsequent Continue medications as prescribed Keep follow-up appointments with Dr. Uribe.Please do not take any NSAIDS ( Advil, Motrin, Ibuprofen, Aleve, Naproxen, Celebrex, Meloxicam, Diclofenac, Voltaren, etc.CKD (Chronic kidney disease) Is indicated when evidence of kidney damage or dysfunction is present.We stage your kidney disease by using your estimated glomerular filtration rate (eGFR). Stage 1 Kidney Disease is greater than or equal to 90. Stage 2 Kidney Disease: 60-89 Stage 3A Kidney Disease: 45-59 Stage 3B Kidney Disease: 30-44Stage 4 Kidney Disease: 15-29Stage 5 Kidney Disease: less than 15. Related to Chronic kidney disease, stage 3a Continue medications as prescribed Keep follow-up appointments with Dr. Uribe.Please do not take any NSAIDS ( Advil, Motrin, Ibuprofen, Aleve, Naproxen, Celebrex, Meloxicam, Diclofenac, Voltaren, etc.CKD (Chronic kidney disease) Is indicated when evidence of kidney damage or dysfunction is present.We stage your kidney disease by using your estimated glomerular filtration rate (eGFR). Stage 1 Kidney Disease is greater than or equal to 90. Stage 2 Kidney Disease: 60-89 Stage 3A Kidney Disease: 45-59 Stage 3B Kidney Disease: 30-44Stage 4 Kidney Disease: 15-29Stage 5 Kidney Disease: less than 15. Related to Chronic kidney disease, stage 3a Thank you for partic ipating in your annual Medicare Wellness exam. I look forward to seeing you next year. Report to the office for follow up the day after all Emergency room visits, urgent care visits, or hospitalizations. Keep a paper list of the above visits and why you were seen over every new 12 month period. Include your discharge date of your last hospitalization and the primary diagnosis. Please report all new surgeries. Wear your seatbelt to decrease safety risks from automobile accidents. Report if you feel unsafe in your home, add smoke detector/fire extinguisher. It is important to go outside every day if you are able. Report if you have to choose between food, utilities, medications, or transportation. Report if lack of transportation is prohibiting you from accessing a doctor's appointment or pharmacy. Report if you are having to cut pills or skip doses because you cannot afford medication. Report a 10 pound weight change in less than 6 months. Related to Medicare annual wellness visit, subsequent Continue medications as prescribed and keep follow up appointments with Dr. Uribe and/or Farzaneh MELGOZA.After treatment use debrox solution to clean wax from ears and do this once a month if this is a recurrent problem. Related to Acute diffuse otitis externa of right ear Continue medications as prescribed and keep follow up appointments with Dr. Uribe and/or Farzaneh MELGOZA. Related to Right otitis media, unspecified otitis media type Thank you for partic ipating in you annual Medicare Wellness exam. I look forward to seeing you next year. Report to the office for follow up the day after all Emergency room visits, urgent care visits, or hospitalizations. Keep a paper list of the above visits and why you were seen over every new 12 month period.Include your discharge date of your last hospitalization and the primary diagnosis. Please report all new surgeries. Wear your seatbelt to decrease safety risks from automobile accidents.Report if you feel unsafe in your home, add smoke detector/fire extinguisher.It is important to go outside every day if you are able. Report if you have to choose between food, utilities, medications, or transportation.Report if lack of transportation is prohibiting you from accessing a doctor's appointment or pharmacy. Report if you're having to cut pills or skip doses because you cannot afford medication.Report a 10 pound weight change in less than 6 months. Stay Well. Related to Medicare annual wellness visit, initial Please go to https://www.diabetesfoodhub.org/ for free food recipes that will help lower your blood sugar. When your blood sugar increases your hunger increases. Choose foods that are low in carbohydrates and drink more water. Think about what your grandparents ate on the farm in 1900 and eat like they did. Meats, vegetables, cheese, eggs, and limited fruits. If it is on a shelf at the local store it is probably not what was on the farm in 1900. Shelf items should be limited to water, nuts, & coffee. Frozen vegetables are ok, look for canned vegetables without salt. If it's white and not cheese, avoid it. Lower-carb choices include: Non-starchy vegetables: salad greens, carrots, green pepper, green beans. Broccoli & cauliflower are higher in healthy carbs.Protein and fat sources: cheese, lean protein (chicken), cottage cheese, nuts, nut butter, etc.Low-glycemic fruits: raspberries, strawberries, blueberries. Every day is a new day to make healthy food choices. Add 30 minutes of chair exercises per day. Use range of motion with your arms and legs. Keep all follow-up appointments with Dr. Uribe.This is a good link with pictures and videos for chair exercises. https://seniorsmobility.org/exercises/ qkfpfqbok-mrp-qnfisugusq-bound-elderly /. Related to Morbid (severe) obesity due to excess calories Continue medications as prescribed and keep follow up appointments with Dr. Uribe and/or Farzaneh MELGOZA. Related to Impaired fasting glucose Continue medications as prescribed Keep follow-up appointments with Dr. Uribe.Please do not take any NSAIDS ( Advil, Motrin, Ibuprofen, Aleve, Naproxen, Celebrex, Meloxicam, Diclofenac, Voltaren, etc.CKD (Chronic kidney disease) Is indicated when evidence of kidney damage or dysfunction is present.We stage your kidney disease by using your estimated glomerular filtration rate (eGFR). Stage 1 Kidney Disease is greater than or equal to 90. Stage 2 Kidney Disease: 60-89 Stage 3A Kidney Disease: 45-59 Stage 3B Kidney Disease: 30-44Stage 4 Kidney Disease: 15-29Stage 5 Kidney Disease: less than 15. Related to Chronic kidney disease, stage 3a Continue medications as prescribed and do not miss your doses.Keep follow up appointments with Dr. Uribe and/or Farzaneh MELGOZA.Monitor your blood pressure and keep a log of blood pressure that you will bring with you to your appointments. Always return for elevations in your blood pressure.Blood pressure is important because the higher your blood pressure is, the higher your risk of health problems in the future, including: Heart attack, a stroke, kidney disease or dementia.Please bring all medication bottles that you are taking to every doctor's visit.Blood Pressure parameters: Healthy:Less than 120 systolic (top number) /less than 80 diastolic (bottom number).Elevated: 121-129/less than 80High - Hypertension Stage 1:130-139/80-89High - Hypertension Stage 2:140+/90+. Related to Essential (primary) hypertension Continue medications as prescribed and keep follow up appointments with Dr. Uribe and/or Farzaneh MELGOZA. Related to Unspecified osteoarthritis, unspecified site ResolvedCall for symptoms Relate d to UTI 2 weeks bactrim DSUr ine cultureRepeat UA in 4 weeks Related to UTI Assessments Type Assessment Date No Information Patient Care Teams Name Effective Dates (start - stop) Status Members No Information
--- OUTSIDE RECORDS SUMMARY | 2025-04-10 10:36 | XMS_ITS | Continuity of Care Document ---
Author Organization [facility] in Address [address] [facility] [place] [address] Phone Care Team Providers Care Spring Setter Name Role Phone Lab/Path Lab, Lab Unavailable [...] YROID HORMONE, COLBY LAB/LIPID PROFILE VITAMIN D, [id number] SCREENING PSA MICROALBUMIN,WESTLEY.,URINE LAB/CREATININE, URINE OFFICE/OUTPATIENT VISIT, [...] PARATHORMONE PARATH- YROID HORMONE, COLBY VITAMIN D, [id number] ROUTINE VENIPUNCTURE ANNUAL WELLNESS VISIT;INITIAL VISIT OFFICE/OUTPATIENT [...] IN EMR Systolic BP < 140 mmHg Diastolic BP < 90 mmHg OFFICE/OUTPATIENT VISIT, EST OFFICE/OUTPATIENT VISIT, EST Systolic BP >= 130 and <= 140 Diastolic BP >= 80 and <= 90 URINALYSIS, AUTOMATED, WITH MICROSCOPY M OFFICE ESTABLISHED-LEVEL 3-LOW TO MODERA TE SEVERIT ROUTINE VENIPUNCTURE METABOLIC PANEL TOTAL CA PHOSPHORUS PHOS- PHATE BLOOD PARATHORMONE PARATH- YROID HORMONE, COLBY HEMOGLOBIN;GLYCOSYLATED AIC VITAMIN D, [id number] MOST RECENT A1C LEVEL WITHIN 12 MONTHS [...] Diagnoses Date Provider Providers Copied on Encounter [facility], [address] [place] [address], [id number] , tel: [phone] [facility] [place] - 892 No Information 5 Lab/Path Lab Lab. . Referring Provider: Hari Byrne, [address], [place], [address]. tel:[phone] [place] [address], [address] [place] [address], [id number] , tel: [phone] [facility] Main Lab - 858 No Information 5 Lab/Path Lab Lab. . Referring Provider: Hari Byrne, [address], [place], [address]. tel:[phone] OFFICE ESTABLISHED- LEVEL 3-LOW TO MODERATE SEVERIT [facility], [address] [place] [address], [id number] , tel: [phone] [facility] [place] - 897 .1 month (chief complaint) Essential (primary) hypertension Left atrial enlargementS hortness of breath 5 Skyler Walters. [address], [place], [id number], [place]. tel:[phone] Referring Provider: Hari Byrne, [address], [place], [address]. tel:[phone] [place] [address], [address] [place] [address], [id number] , [place] tel: [phone] [facility] Main Lab - 858 No Information 5 Lab/Path Lab Lab. . Referring Provider: Hari Byrne, [address], [place], [address]. tel: [phone] OFFICE/OUTPA TIENT VISIT, EST [facility], [address] [place] [address], [place], [place], [id number] , [place] tel: [phone] [facility] [place] - 892 . 6 month (chief complaint) Impaired fasting glucoseMorbi d (severe) obesity due to excess caloriesEsse ntial (primary) hypertension Chronic kidney disease, stage 3aScreening PSA (prostate specific antigen) 5 Skyler Walters. [address], [place], [id number], [place]. tel: [phone] Referring Provider: Hari Byrne, [address] [place], [address]. tel: [phone] [place] [address], [address] [place] [address], [place], [place], [id number] , [place] tel: [phone] [facility] [place] - 892 . Medicare Wellness (chief complaint)[facility] preventive (chief complaint) Medicare annual wellness visit, subsequentCh ronic kidney disease, stage 3aMorbid (severe) obesity due to excess caloriesNSVT (nonsustaine d ventricular tachycardia) 5 Edvin Rivera. [address], [place], [id number], [place]. tel: [phone] Referring Provider: Hari Byrne, [address] [place], [address]. tel: [phone] [place] [address], [address] [place] [address], [place], [place], [id number] , [place] tel: [phone] [facility] [place] - 893 No Information 5 Skyler Walters. [address], [place], [id number], [place]. tel: [phone] [facility], [address], [place], [place], [id number] , [place] tel:[phone] [facility] Main Lab - 858 No Information 4 Lab/Path Lab Lab. . Referring Provider: Mariusz Tyson, [address] [place] [address], [address]. tel: [phone] [facility], [address] [place] [address], [place], [place], [id number] , [place] tel:[phone] [facility] Main Lab - 858 No Information 4 Lab/Path Lab Lab. . Referring Provider: Mariusz Tyson, [address] [place], [address]. tel: [phone] [facility], [address] [place] [address], [id number] , [place] tel: [facility] Gastroentero logy - 851 No Information 4 Heathchidiyaz Dunaway. [address] [place] [address], [place], [place], [id number], [place]. tel: [phone] Referring Provider: Emelyn Bailey, [address] [place] [address], [place], [address]. tel:[phone] [facility], [address] [place] [address], [place], [place], [id number] , [place] tel:[phone] [facility] [place] - 2 No Information 4 Lab/Path Lab Lab. . Referring Provider: Hari Byrne, [address], [place], [address]. tel:[phone] [facility], [address] [place] [address], [place], [place], [id number] , [place] tel:[phone] [facility] Main Lab - 858 No Information 4 Lab/Path Lab Lab. . Referring Provider: Hari Byrne, [address], [place], [address]. tel:[phone] [facility] OFFICE ESTABLISHED- LEVEL 3-LOW TO MODERATE SEVERIT [facility], [address] [place] [address], [id number] , [place] tel: [phone] [facility] [place] - 892 . refill (chief complaint) Impaired fasting glucoseMorbi d (severe) obesity due to excess caloriesScre ening PSA (prostate specific antigen) 4 Skyler Walters. [address], [place], [id number], [place]. tel:[phone] Referring Provider: Hari Byrne, [address], [place], [address]. tel:[phone] [place] [address], [address] [place] [address], [id number] , [place] tel: [phone] [facility] Main Lab - 858 No Information 4 Lab/Path Lab Lab. . Referring Provider: Hari Byrne, [address], [place], [address]. tel:[phone] [place] [address], [address] [place] [address], [id number] , [place] tel: [phone] [facility] [place] - 895 No Information 4 Lab/Path Lab Lab. . Referring Provider: Hari Byrne, [address], [place], [address]. tel:[phone] [place] [address], [address] [place] [address], [place], [place], [id number] , [place] tel:[phone] [facility] [place] - 896 .MW (chief complaint) Chronic kidney disease, stage 3aScreening PSA (prostate specific antigen)[facility] annual wellness visit, subsequent 4 David Rivera. [address], [place], [id number], [place]. tel:[phone] Referring Provider: Hari Byrne, [address], [place], [address]. tel:[phone] OFFICE/OUTPA TIENT VISIT, [facility], [address] [place] [address], [id number] , [place] tel: [phone] [facility] [place] - 892 .f/u HTN (chief complaint) Essential (primary) hypertension Chronic kidney disease, stage 3aImpaired fasting glucose 4 Skyler Walters. [address], [place], [id number], [place]. tel:[phone] Referring Provider: Hari Byrne, [address], [place], [address]. tel:[phone] OFFICE ESTABLISHED- LEVEL 3-LOW TO MODERATE [facility], [address] [place] [address], [id number] , [place] tel: [phone] [facility] [place] - 892 .2 week f/u right ear (chief complaint) Other otitis externa, right ear 3 Skyler Hari. [address], [place], [place], [id number], [place]. tel:[phone] Referring Provider: Hari Byrne, [address], [place], [address]. tel:[phone] OFFICE ESTABLISHED- LEVEL 3-LOW TO MODERATE [facility], [address] [place] [address], [id number] , [place] tel: [phone] [facility] [place] - 892 . ears (chief complaint) Other otitis externa, right ear 3 Skyler Ahri. [address], [place], [place], [id number], [place]. tel:[phone] Referring Provider: Hari Byrne, [address], [place], [address]. tel:[phone] [place] [address], [address] [place] [address], [id number] , [place] tel: [phone] [facility] [place] - 897 . right ear pain (chief complaint) Impacted cerumen, right ear 3 Skyler Walters. [address], [place], [id number], [place]. tel:[phone] Referring Provider: Hari Byrne, [address], [place], [address]. tel:[phone] OFFICE/OUTPA TIENT VISIT, [facility], [address] [place] [address], [place], [place], [id number] , [place] tel: [phone] [facility] - 495 .right ear pain (chief complaint) Right otitis media, unspecified otitis media typeAcute diffuse otitis externa of right ear 3 Anoop Hurley. [address], [place], [id number], [place]. tel:[phone] Referring Provider: Hari Byrne, [address], [place], [address]. tel:[phone] [place] [address] and [facility], [address] [place] [address], [id number] , [place] tel: [phone] [facility] Main Lab - 858 No Information 3 Lab/Path Lab Lab. . Referring Provider: Hari Byrne, [address], [place], [address]. tel:[phone] [place] [address] and [facility], [address] [place] [address], [id number] , [place] tel: [phone] [facility] [place] - 806 No Information 3 Lab/Path Lab Lab. . Referring Provider: Hari Byrne, [address], [place], [address]. tel:[phone] OFFICE/OUTPA TIENT VISIT, EST [facility], [address] [place] [address], [id number] , [place] tel:[phone] [facility] [place] - a (chief complaint) GoutChronic kidney disease, stage 3aEssential (primary) hypertension 3 Skyler Walters. [address], [place], [place], [id number], [place]. tel: [phone] Referring Provider: Hari Byrne, [address], [place], [address]. tel: [address] [place] [address] and [facility], [address] [place] [address], [id number] , [place] tel:[phone] [facility] Main Lab - 858 No Information 3 Lab/Path Lab Lab. . Referring Provider: Juliet Davalos, [address], [place], [address]. tel: [address] [place] [address] and [facility], [address] [place] [address], [id number] , [place] tel:[phone] [facility] Main Lab - 858 No Information 3 Lab/Path Lab Lab. . Referring Provider: Hari Byrne, [address], [place], [address]. tel: [address] [place] [address] and [facility], [address] [place] [address], [id number] , [place] tel:[phone] [facility] [place] - No Information 3 Lab/Path Lab Lab. . Referring Provider: Juliet Davalos, [address], [place], [address]. tel: [address] [place] [address] and [facility], [address] [place] [address], [id number] , [place] tel:[phone] [facility] [place] - 892 a Medicare Wellness. (chief complaint) Unspecified osteoarthrit is, unspecified siteEssentia l (primary) hypertension Chronic kidney disease, stage 3aImpaired fasting glucoseNeed for hepatitis C screening testMorbid (severe) obesity due to excess [facility] care annual wellness visit, initial Sep- 3 Anoop Hurley. [address], [place], [id number], [place]. tel:[phone] Referring Provider: Hari Byrne, [address], [place], [address]. tel:[phone] OFFICE/OUTPA TIENT VISIT, [facility], [address] [place] [address], [id number] , [place] tel: [phone] [facility] [place] - 016 .medication concerns (chief complaint) Essential (primary) hypertension Impaired fasting glucoseChron ic kidney disease, stage 3aGoutShortn ess of breathRectal bleed Sep- 3 Skyler Walters. [address], [place], [id number], [place]. tel:[phone] Referring Provider: Hari Byrne, [address], [place], [address]. tel:[phone] OFFICE/OUTPA TIENT VISIT, [facility], [address] [place] [address], [id number] , [place] tel: [phone] [facility] [place] - 316 . 10 month checkup (chief complaint) Essential (primary) hypertension Shortness of breathGoutIn somniaRectal bleed Sep-0 3 Skyler Walters. [address], [place], [id number], [place]. tel:[phone] Referring Provider: Hari Byrne, [address], [place], [address]. tel:[phone] [place] [address], [address] [place] [address], [id number] , [place] tel: [phone] [facility] Radiology - 888 No Information 2 [facility] . . Referring Provider: Hari Byrne, [address], [place], [address]. tel:[phone] [place] [address], [address] [place] [address], [place], [place], [id number] , [place] tel: [phone] [facility] Main Lab - 858 No Information 2 Lab/Path Lab Lab. . Referring Provider: Hari Byrne, [address], [place], [address]. tel:[phone] OFFICE/OUTPA TIENT VISIT, [facility], [address] [place] [address], [place], [place], [id number] , [place] tel: [phone] [facility] [place] - 801 . med refills (chief complaint) Impaired fasting glucoseChron ic kidney disease, stage 3aEssential (primary) hypertension Encounter for screening for malignant neoplasm of prostate 2 Skyler Walters. [address], [place], [id number], [place]. tel:[phone] Referring Provider: Hari Byrne, [address], [place], [address]. tel:[phone] OFFICE/OUTPA TIENT VISIT, [facility], [address] [place] [address], [place], [place], [id number] , [place] tel: [phone] [facility] [place] - 737 . a (chief complaint) Impaired fasting glucoseOther otitis externa, left ear [place]- 2 Skyler Walters. [address], [place], [id number], [place]. tel:[phone] Referring Provider: Hari Byrne, [address], [place], [address]. tel:[phone] [place] [address], [address] [place] [address], [place], [place], [id number] , [place] tel: [phone] [facility] Urology - 891 No Information 2 Lab/Path Lab Lab. . Referring Provider: Rosalio Winkler, [address] [place] [address], [address]. tel:[phone] OFFICE ESTABLISHED- LEVEL 3-LOW TO MODERATE SEVERIT [facility], [address] [place] [address], [id number] , [place] tel: [phone] [facility] Urology - 891 .4 MON UA (chief complaint) UTI 2 Matthew Santamaria. [address] [place] [address], [id number], [place]. tel:[phone] Referring Provider: Rosalio Winkler, [address] [place] [address], [address]. tel:[phone] [facility], [address] [place] [address], [id number] , [place] tel: [phone] [facility] [place] - 892 No Information 2 Lab/Path Lab Lab. . Referring Provider: Hari Byrne, [address], [place], [address]. tel:[phone] [place] [address], [address] [place] [address], [id number] , [place] tel: [phone] [facility] Main Lab - 859 No Information 2 Lab/Path Lab Lab. . Referring Provider: Hari Byrne, [address], [place], [address]. tel:[phone] OFFICE/OUTPA TIENT VISIT, EST [facility], [address] [place] [address], [id number] , [place] tel:[phone] [facility] [place] - 897 .L ear pain (chief complaint) Other otitis externa, left earChronic kidney disease, stage 3aHyperglyce miaUTIImpair ed fasting glucose 0 2 Skyler Walters. [address], [place], [id number], [place]. tel:[phone] Referring Provider: Hari Byrne, [address], [place], [address]. tel:[phone] [facility], [address] [place] [address], [id number] , [place] tel: [phone] [facility] Urology - 891 No Information 2 Lab/Path Lab Lab. . Referring Provider: Rosalio Winkler, [address] [place] [address], [address]. tel:[phone] [facility], [address] [place] [address], [id number] , [place] tel:[phone] [facility] Urology - 891 UTI 2 Matthew Santamaria. [address] [place] [address], [id number], [place]. tel:[phone] OFFICE-NEW, LEVEL 3-MODERATE [facility], [address] [place] [address], [id number] , [place] tel:[phone] [facility] Urology - 891 . UTI (chief complaint) UTI 2 Matthew Santamaria. [address] [place] [address], [id number], [place]. tel:[phone] Referring Provider: Hari Byrne, [address], [place], [address]. tel:[phone] [place] [address] and [facility], [address] [place] [address], [id number] , [place] tel:[phone] [facility] [place] - 892 No Information 1 Lab/Path Lab Lab. . Referring Provider: Hari Byrne, [address], [place], [address]. tel:[phone] [facility], [address] [place] [address], [id number] , [place] tel:[phone] [facility] Main Lab - 858 No Information 1 Lab/Path Lab Lab. . Referring Provider: Hari Byrne, [address], [place], [address]. tel:[phone] OFFICE ESTABLISHED- LEVEL 3-LOW TO MODERATE SEVERIT [facility], [address] [place] [address], [id number] , [place] tel: [phone] [facility] [place] - 890 .Trouble Voiding (chief complaint) UTIAtrial fibrillation 1 Skyler Walters. [address], [place], [place], [id number], [place]. tel:[phone] Referring Provider: Hari Byrne, [address], [place], [address]. tel:[phone] [place] [address], [address] [place] [address], [id number] , [place] tel: [phone] [facility] Main Lab - 858 No Information 1 Lab/Path Lab Lab. . Referring Provider: Hari Byrne, [address], [place], [address]. tel:[phone] [place] [address], [address] [place] [address], [place], [place], [id number] , [place] tel: [phone] [facility] [place] - 892 No Information 1 Lab/Path Lab Lab. . Referring Provider: Hari Byrne, [address], [place], [address]. tel:[phone] OFFICE-NEW, LEVEL 3-MODERATE [facility], [address] [place] [address], [id number] , [place] tel: [phone] [facility] [place] - 893 .New Patient (chief complaint) Essential (primary) hypertension Encounter for screening for malignant neoplasm of prostate 1 Skyler Walters. [address], [place], [place], [id number], [place]. tel:[phone] Referring Provider: Hari Byrne, [address], [place], [address]. tel:[phone] OFFICE ESTABLISHED- LEVEL 3-LOW TO MODERATE [facility], [address] [place] [address], [id number] , tel:[phone] [facility] [place] - 892 Cough (chief complaint) Bronchitis, Acute Feb-0 4-201 4 Skyler Walters. [address], [place], [place], [id number], [place]. tel:[phone] Referring Provider: Hari Uribe Caty, [address], [place], [address]. tel:[phone] [place] [address] and [facility], [address] [place] [address], [id number] , tel:[phone] [facility] Radiology - 888 No Information 8-201 4 Xray [place]. . Referring Provider: Hari Byrne, [address], [place], [address]. tel:[phone] OFFICE ESTABLISHED- LEVEL 3-LOW TO MODERATE [facility], [address] [place] [address], [place], [place], [id number] , [place] tel:[phone] [facility] [place] - 892 Pneumonia (chief complaint) SOLITARY PULMONARY NODULEPneumo luis angel 0 8-201 4 Skyler Walters. [address], [place], [place], [id number], [place]. tel:[phone] Referring Provider: Hari Uribe Caty, [address], [place], [address]. tel:[phone] [facility], [address] [place] [address], [id number] , [place] tel: [phone] [facility] [place] - 892 SOLITARY PULMONARY NODULE 0 3-201 4 Lab [place]. . Referring Provider: Hari Byrne, [address], [place], [address]. tel: [address] [place] [address] RETURN TO WORK PHYSICAL [facility], [address] [place] [address], [id number] , [place] tel: [phone] [facility] [place] - 892 Return to work - Jonancy (chief complaint) Routine Medical Exam 4 Skyler Walters. [address], [place], [place], [id number], [place]. tel: [phone] Referring Provider: Hari Byrne, [address], [place], [address]. tel: [address] [place] [address], [address] [place] [address], [id number] , [place] tel:[phone] [facility] [place] - 892 No Information 3 Lab [place]. . Referring Provider: Hari Byrne, [address], [place], [address]. tel: [address] [place] [address], [address] [place] [address], [id number] , [place] tel:[phone] [facility] Radiology - 888 No Information 3 Xray [place]. . Referring Provider: Hari Byrne, [address], [place], [address]. tel: [phone] OFFICE ESTABLISHED- LEVEL 3-LOW TO MODERATE SEVERIT [facility], [address] [place] [address], [id number] , [place] tel: [phone] [facility] [place] - 892 hypertension , wheezing (chief complaint) Hypertension , BenignNonspe cific abnormal results of function study of thyroidWheez ingScreening for malignant neoplasms of the prostatePneu monia 3 Skyler Walters. [address], [place], [place], [id number], [place]. tel: [phone] Referring Provider: Hari Byrne, [address], [place], [address]. tel: [phone] [place] [address] and [facility], [address] [place] [address], [id number] , [place] tel:[phone] [facility] [place] - 892 No Information 2 Lab [place]. . Referring Provider: Hari Byrne, [address], [place], [address]. tel: [address] [place] [address] and [facility], [address] [place] [address], [id number] , [place] tel:[phone] [facility] [place] - 892 LEFT 3RD FINGER, HYPERTENSION (chief complaint) Hypertension , Benign Jun- 2 Skyler Hari. [address], [place], [place], [id number], [place]. tel: [phone] Referring Provider: Hari Byrne, [address], [place], [address]. tel: [address] [place] [address] and [facility], [address] [place] [address], [id number] , [place] tel:[phone] [facility] Radiology - 888 No Information 2 Ultrasound .. . Referring Provider: Hari Byrne, [address], [place], [address]. tel: [address] [place] [address] and [facility], [address] [place] [address], [id number] , [place] tel:[phone] [facility] [place] - [phone] Nonspecific abnormal results of function study of thyroid Dec- 2 Skyler Hari. [address], [place], [place], [id number], [place]. tel:[phone] [facility] and [facility], [address] [place] [address], [id number] , [place] tel:[phone] [facility] [place] - [phone] No Information 2 Lab [place]. . Referring Provider: Hari Byrne, [address], [place], [address]. tel:[phone] [facility], [address] [place] [address], [id number] , tel: [phone] [facility] - 2 Sinus, hypertension (chief complaint) Hypertension , BenignScreen ing for malignant neoplasms of the prostate 2 Skyler Walters. [address], [place], [id number], [place]. tel:[phone] Referring Provider: Hari Byrne, [address], [place], [address]. tel:[phone] [facility], [address] [place] [address], [id number] , tel: [phone] Conversion Acute sinusitis, unspecifiedA cute pharyngitisA llergic [...] Record Payers Payer name Insurance type Covered republican ID Authoriza tion(s) [facility] [employer] CARE PLANS [id number] MEDICARE PART B [place] [id number] Social History Type Description Quantity Date Captured Comments Sex Male Smoking Status No Information Chief Complaint And Reason For Visit No Information Reason For Referral Reason For Referral No Information Plan Of Treatment Date Type Action Status Referral Ordered: US THYROID Appointment date/timeframe: 01/21/2012 ordered Future Order: Lab Order PSA SCRE RAKESH (MEDICARE ONLY) ([id number]), Sent on: Sent Future Order: Lab Order ANILA CAMERON (MEDICARE ONLY) ([id number]), Sent on: Sent Future Order: Radiology Order Ch est X-ray (two views) ([id number]), Ordered on: Ordered Future Order: Radiology Order Ch est X-ray (two views) ([id number]), Ordered on: Ordered Future Order: Radiology Order US THYROID ([id number]), Ordered on: Ordered History Of Present Illness [...] grossly intact.Preventive CareCOLONOSCOPY- 08/07 NormalCARDIAC CATH 09/06 P[place] HeartPSA 02/27/25 [id number] 02/27/25 5.3LDL 02/27/25 105/2MICROALBUMIN 02/27/25 2.1EYE EXAM [...] TEST refused, CARDIAC CT CALCIUM SCOREPSA 07/19/24 [id number] 07/19/24 pendingLDLMICROALBUMINEYE EXAMFLU REFUSEDPNEUMOVAX - 05/04PREVNAR 20 REFUSEDSMOKER- QUIT 1992MEDICARE WELLNESS 02/12/24 medicare preventive Depression s creening score was [...] Providers: Dr uribe - Medical Equipment Suppliers: [employer] - Home Health Agency: None - Other Medical Care Providers: None . Medicare Wellness Pt comes in today [...] ADVISED 02/27/25PHQ-9- 02/27/25- 12/08FLU REFUSEDPNEUMOVAX - 05/04PREVNAR 20 REFUSEDSMOKER- QUIT 1992AAA SCREEN- REFUSED 02/27/25MEMORY SCREEN- 01/16, 02/27/25MEDICARE WELLNESS 02/27/25 . refill Pt. is here for follow-up [...] edemaNeurologic- Cranial nerves, motor function grossly intact Comments: Justyn ts: Preventive CareCOLONOSCOPY- 2009 Normal- REPEAT REFUSEDSTRESS TEST UPCOMINGPSA 08/05 normalFLU REFUSEDPNEUMOVAX 05/04SMOKER- QUIT 09/27 NormalMEDICARE WELLNESS 05/28/23 .MW Pt comes in [facility] for annual Medicare wellness exam.Copy of written [...] Dose CT annually as needed. Comments: Justyn ts: Preventive CareCOLONOSCOPY- 2009 Normal- REPEAT REFUSEDSTRESS TEST UPCOMINGPS08/05 normalFLU REFUSEDPNEUMOVAX 05/04SMOKER- QUIT 09/27 NormalMEDICARE WELLNESS 05/28/23 .f/u HTN Pt. is here [...] Cranial nerves, motor function grossly intact. Comments: Preve ntive CareCOLONOSCOPY- 2009 Normal- REPEAT REFUSEDSTRESS TEST UPCOMINGPSA 08/05 normalFLU REFUSEDPNEUMOVAX 05/04SMOKER- QUIT 09/27 NormalMEDICARE WELLNESS 05/28/23 .2 week f/u right ear [...] REFUSEDPNEUMOVAX 05/04SMOKER- QUIT 09/27 NormalMEDICARE WELLNESS 05/28/23 . right ear pain Pt. [...] 07/18/21 normalFLU REFUSEDPNEUMOVAX 05/04SMOKER- QUIT 09/27 Normal a Medicare Wellness. Pt comes in today [...] planning, and activities of daily living. Comments: Commen ts: Preventive CareCOLONOSCOPY- 2009 Normal- REPEAT REFUSEDPSA [...] normalFLU REFUSEDPNEUMOVAX 05/04SMOKER- QUIT 09/27 Normal . 10 month checkup Pt. is here [...] Cranial nerves, motor function grossly intact. . med refills (comments) revenfabiana ve CareCOLONOSCOPY- 2009 Normal- REPEAT REFUSEDPSA 07/18/21 normalFLU REFUSEDPNEUMOVAX 05/04SMOKER- QUIT 1992CXR- 09/27 Normal . med refills Pt. is [...] omnicef (10 day course)No current LUTSDenies hematuriaDenies ivymteoEPY2XCE 21ccUA with a few clumps WBCHTNAfibOA .L ear pain Preventive [facility] OLONOSCOPY- 2009 Normal- REPEAT REFUSEDPSA 07/18/21 normalFLU REFUSEDPNEUMOVAX 05/04SMOKER- QUIT 09/27 Normal . UTI 66 y/o maleRecen t admission with ecoli UTI, COVID 19, afibRecently completed omnicef (10 day course)No current LUTSDenies hematuriaDenies bkszknoIAP4ZAU 21ccUA with a few clumps WBCHTNAfibOA .Trouble [...] irregular rate and rhythm without murmur, nl S1/S0Hdgzw- Bilateral clear to auscultation, normal respiratory rate and effortAbdomen- Soft, positive bowel sounds, no tenderness. No hepatosplenomegaly, masses, or hernias. No costovertebral angle tenderness. ELECTROCARDIOGRAM:Atrial fib with rapid vent response. Normal axis. No hypertrophy. ST segment elevation III, avr, avl,ST segment depression I, II, V2-V6.See chart for EKG. .New Patient (comments) [facility]i [facility] Normal- REPEAT 2020PSA 09/13/13TSH 09/13/13- NormalFLU [...] Regular rate and rhythm without murmur, normal S1/D0Mnete- Bilateral clear to auscultation, normal respiratory rate [...] stage 3a Continue medications as prescribed and keep follow [...] pictures and videos for chair exercises. [email or web address] /. Related to Morbid (severe) obesity due to excess calories Continue medications as prescribed Keep follow-up appointments [...] stage 3a Continue medications as prescribed and keep follow up appointments with Dr. Uribe and/or Farzaneh MELGOZA. Related to Impaired fasting glucose Continue medications as prescribed and keep follow up appointments with Dr. Uribe and/or Farzaneh MELGOZA. Related to Unspecified osteoarthritis, unspecified site Continue medications as prescribed and do not [...] Stage 2:140+/90+. Related to Essential (primary) hypertension ResolvedCall for symptoms Relate d to UTI 2 weeks bactrim DSUr ine cultureRepeat UA in 4 weeks Related to UTI Assessments Type Assessment Date No Information Patient Care Teams Name Effective Dates (start - stop) Status Members No Information
--- NOTE | ~2025-05-19 | XR_ITS ---
EXAM/PROCEDURE: XR chest 2V - 05/19/2025 11:24 CDT HISTORY: 70 years old Male with CP TECHNIQUE: Two view(s) of the chest. COMPARISON: None available. FINDINGS: LUNGS/ PLEURA: No focal consolidation. No appreciable pneumothorax or large pleural effusion. HEART/ MEDIASTINUM: Heart appears normal in size. BONES: No acute osseous abnormality. OTHER: Visualized upper abdomen is unremarkable. IMPRESSION: No acute process. Reviewed, dictated and finalized at location N. IMPRESSION: No acute process.
--- NOTE | 2025-05-19 10:25 | ECG_ITS ---
Test Date: 2025-05-19 10:29:47 Measurements Intervals Hansen Rate: 87 P: 0 MS: 0 QRS: -57 QRSD: 131 T: 109 QT: 404 QTc: 488 Interpretive Statements ACCELERATED IDIOVENTRICULAR RHYTHM FOLLOWED BY SINUS RHYTHM ST DEPRESSIONS IN V4-5 SUGGESTIVE OF ISCHEMIA No previous ECG available for comparison Electronically Signed On 05-19-2025 12:42:12 CDT by Siva Espinal M.D.
[2025-05-19 10:27] VITALS: BP 161/98; PULSE 87; RESP 12; TEMP 36.6; O2SAT 100
[2025-05-19 10:31] VITALS: PULSE 88
--- NOTE | 2025-05-19 10:39 | ECG_ITS ---
Test Date: 2025-05-19 10:42:48 Measurements Intervals [place] Rate: 67 P: 33 AK: 166 QRS: -8 QRSD: 96 T: -20 QT: 383 QTc: 407 Interpretive Statements SINUS RHYTHM MINIMAL ST DEPRESSION [0.025+ mV ST DEPRESSION] AND T-WAVE ABNORMALITIES Compared to ECG 05/19/2025 10:29:47 COMPARABLE TO PREVIOUS Electronically Signed On 05-19-2025 12:42:55 CDT by Siva Espinal M.D.
[2025-05-19 10:42] LABS: Hematocrit 46.1 % (42.0-52.0); Hemoglobin 15.0 g/dL (14.0-18.0); Immature Granulocyte Percent A 0.2 % (0-0.5); Lymphocytes Absolute Auto 3.16 K/mm3 (0.9-3.2); Mean Corpuscular HGB Conc 32.5 g/dl (32-36); Mean Corpuscular Hemoglobin 29.1 pg (26-34); Mean Corpuscular Volume 89.3 fl (80-100); Nucleated Red Blood Cells Absolute Auto 0.000 K/mm3 (0.0-0.012); Nucleated Red Blood Cells Perc 0.0 % (0.0-0.2); Platelet Count Result 218 k/mm3 (150-375); Red Blood Count 5.16 M/mm3 (4.6-6.20); White Blood Count 9.7 K/mm3 (4.5-10.0)
--- OUTSIDE RECORDS SUMMARY | 2025-05-19 10:42 | XMS_ITS | Clinical Summary ---
Author Organization [facility] Address [address] [place] [address] Care Team Providers Care Powder Carrier Name Role Phone Unavailable Primary Care Provider Unavailabl e Allergies Active Allergy Reactions Criticality Noted Date Comments Lidocaine Unknown 07/29/2023 Medications No known medications Active Problems No known active problems Social History Tobacco Use Types Packs/Day Years Used Date Smoking Tobacco: Never Assessed Sex and Gender Information Value Date Recorded Sex Assigned at Not on file Legal Sex Male 9:14 PM CDT Gender Identity Not on file Sexual Orientation Not on file Plan of Treatment Health Maintenance Due Date Last Done Comments Colorectal Cancer Screening Colonoscopy (10 Years) 1957 Hepatitis C 1975 Pneumococcal Vaccine: 50+ Ye ars (1 of 1 - PCV) 2007 Zoster Vaccines (1 of 2) 2007 Annual Medicare Wellness Visit 2022 COVID-19 Vaccine (1 - 2023-2 5 season) 2025 DTaP, Tdap and Td Vaccines ( 2 - Tdap) 09/14/2030 09/14/2020 RSV Immunization or 60+ Years (1 - 1-dose 75+ series) 2032 Meningococcal B Vaccine Aged Out No l onger eligible based on patient's age to complete this topic Meningococcal Vaccine Aged Out No melba dylan eligible based on patient's age to complete this topic RSV Immunizations Under 20 Months Aged Out No longer eligible based on patient's age to complete this topic Insurance [employer] MEDICA[employer]
--- OUTSIDE RECORDS SUMMARY | 2025-05-19 10:43 | XMS_ITS | Encounter Summary ---
Author Organization [facility] Address [address] [place] [address] Care Team Providers Care Regulator Assembler Name Role Phone Unavailable Primary Care Provider Unavailabl e Encounter Details Date Type Department Care Team (Latest Contact Info) Description 07/20/2018 Abstract [facility] Medical Group , Generic Conversion, Social History Tobacco Use Types Packs/Day Years Used Date Smoking Tobacco: Never Assessed Sex and Gender Information Value Date Recorded Sex Assigned at Not on file Legal Sex Male 9:14 PM CDT Gender Identity Not on file Sexual Orientation Not on file documented as of this encounter Plan of Treatment Not on file documented as of this encounter Visit Diagnoses Not on filedocumented in this encounter
--- NOTE | 2025-05-19 10:55 | ED_ITS ---
HPI - General Adult General Chief complaint: Chest Pain Stated complaint: Chest pain x 20 min Time Seen by Provider: 05/19/25 10:34 History of Present Illness HPI narrative: Patient is 70-year-old gentleman who presents emergency department with chief complaint of palpitations and chest pain. Patient reports that he has history of atrial fibrillation and reports that he takes sotalol the patient reports that he felt as though his heart was starting to be fast and irregular and then started getting short of breath the patient states he has some chest discomfort whenever this happened reports the pain is feeling better and his palpitations are starting to diminished at this time the patient reports he has had a stress test in the last year on reports that he did not require any stent placement patient reports he is followed by cardiology Related Data Allergies Allergy/AdvReac Type Severity Reaction Status Date / Time No Known Allergies Allergy Mild Verified 04/01/10 01:23 Review of Systems 2 Review of Systems: A 10 system review of systems was completed on the patient and is negative except for what is stated in the HPI. Nursing and ancillary documentation was reviewed. Exam 2 Narrative: GENERAL: Well-appearing, well-nourished, and in no acute distress. HEAD: Normocephalic, atraumatic. EYES: PERRLA and EOMI. ENT: Nares clear, no rhinorrhea or epistaxis. Mucous membranes moist. NECK: Supple. CHEST: Clear to auscultation. No respiratory distress. HEART: Regular rate and rhythm. No murmur heard. Normal peripheral pulses. ABDOMEN: Soft, nontender, nondistended, normal active bowel sounds. EXTREMITIES: Normal range of motion. No edema. SKIN: Warm, dry, no rash. NEURO: No focal deficits. Alert and oriented x3. PSYCH: Normal mood and affect. Course Vital Signs Vital signs: Vital Signs Temperature 36.6 C 05/19/25 10:27 Pulse Rate 87 05/19/25 10:27 Respiratory Rate 12 05/19/25 10:27 Blood Pressure 161/98 H 05/19/25 10:27 Pulse Oximetry 100 05/19/25 10:27 Oxygen Delivery Room Air 05/19/25 10:27 Temperature 36.6 C 05/19/25 10:27 Pulse Rate 88 05/19/25 10:31 Respiratory Rate 12 05/19/25 10:27 Blood Pressure 161/98 H 05/19/25 10:27 Pulse Oximetry 100 05/19/25 10:27 Oxygen Delivery Room Air 05/19/25 10:27 Medical Decision Making [facility] Narrative Medical decision making narrative: Differential diagnosis includes ACS, atypical chest pain, palpitations, electrolyte abnormality, CHF Laboratory studies were obtained on the patient showed a negative troponin on initial 1 EKG showed no evidence of ST-elevation Initial troponin was negative the patient was offered repeat troponin the patient decided that he did not want to stay. We discussed risks and benefits with the patient the patient accepted these risks consent that if he has worsening symptoms he will return to the emergency department immediately. Vital Signs Vital Signs: Vital Signs Temperature 36.6 C 05/19/25 10:27 Pulse Rate 87 05/19/25 10:27 Respiratory Rate 12 05/19/25 10:27 Blood Pressure 161/98 H 05/19/25 10:27 Pulse Oximetry 100 05/19/25 10:27 Oxygen Delivery Room Air 05/19/25 10:27 Temperature 36.6 C 05/19/25 10:27 Pulse Rate 88 05/19/25 10:31 Respiratory Rate 12 05/19/25 10:27 Blood Pressure 161/98 H 05/19/25 10:27 Pulse Oximetry 100 05/19/25 10:27 Oxygen Delivery Room Air 05/19/25 10:27 Lab Data 05/19/25 10:36 05/19/25 10:36 Labs: Lab Results 05/19/25 05/19/25 Range/Units 10:36 10:53 WBC 9.7 (4.5-10.0) K/mm3 RBC 5.16 (4.6-6.20) M/mm3 Hgb 15.0 (14.0-18.0) g/dL Hct 46.1 (42.0-52.0) % MCV 89.3 (80-100) fl MCH 29.1 (26-34) pg MCHC 32.5 (32-36) g/dl RDW 14.1 (11.5-14.5) % Plt Count 218 (150-375) k/mm3 MPV 9.5 (7.4-10.4) fl Immature Gran % (Auto) 0.2 (0-0.5) % Neut % (Auto) 54.6 (45.5-73.1) % Lymph % (Auto) 32.6 (18.3-44.2) % [place] % (Auto) 9.5 H (2.6-8.5) % Eos % (Auto) 2.4 (0-4.4) % Baso % (Auto) 0.7 (0.2-1.2) % Lymph # (Auto) 3.16 (0.9-3.2) K/mm3 [place] # (Auto) 0.9 H (0.1-0.6) K/mm3 Eos # (Auto) 0.2 (0-0.3) K/mm3 Baso # (Auto) 0.1 (0.0-0.1) K/mm3 Abs Immat Gran (auto) 0.02 (0.00-0.031) K/mm3 Absolute Neuts (auto) 5.3 (1.3-6.7) K/mm3 Absolute Nucleated RBC 0.000 (0.0-0.012) K/mm3 Nucleated RBC % 0.0 (0.0-0.2) % PT 14.5 (11.1-14.7) Seconds INR 1.1 APTT 27.8 (22.3-36.8) Seconds Sodium 141 (137-145) mmol/L Potassium 4.1 (3.4-5.0) mmol/L Chloride 109 H (98-107) mmol/L Carbon Dioxide 21 L (22-30) mmol/L Anion Gap 11 (4-12) mmol/L BUN 13 (9-20) mg/dL Creatinine 0.81 (0.7-1.3) mg/dL Estim Creat Clear Calc 104 ml/min Estimated GFR > 60 (59 - ) Glucose 129 H (65-110) mg/dL Calcium 9.7 (8.4-10.2) mg/dL Magnesium 2.2 (1.6-2.3) mg/dL Total Bilirubin 0.8 (0.2-1.3) mg/dL AST 33 (17-59) U/L ALT 28 (6-50) U/L Alkaline Phosphatase 90 (38-126) U/L Troponin I < 0.012 (0.000-0.034) ng/mL NT-Pro-B Natriuret Pep 81 (19.9-100) pg/mL Total Protein 8.9 H (6.3-8.2) g/dL Albumin 4.5 (3.5-5.1) g/dL Lipase 50 (23-300) U/L Discharge Plan Discharge Clinical Impression: Atypical chest pain, Heart palpitations Patient Disposition: Home Condition: Stable Instructions: Antibiotic Form, Chest Pain (ED), Heart Palpitations (ED) Additional Instructions: Please follow-up with your linux network administrator as soon as possible. If your symptoms worsen please return to the emergency department immediately it was recommended that you stay for further repeat testing Patient Language: Turkish Follow-up/Referrals: Favian,MUKUND Mata [Non-Staff, Family Practice] Time of Disposition: 13:07
[2025-05-19 10:59] LABS: Alanine Aminotransferase 28 U/L (6-50); Albumin Level 4.5 g/dL (3.5-5.1); Alkaline Phosphatase 90 U/L (38-126); Anion Gap 11 mmol/L (4-12); Aspartate Amino Transferase 33 U/L (17-59); Bilirubin,Total 0.8 mg/dL (0.2-1.3); Blood Urea Nitrogen 13 mg/dL (9-20); Calcium 9.7 mg/dL (8.4-10.2); Carbon Dioxide 21 mmol/L (22-30); Chloride 109 mmol/L (98-107); Estimated CRCL calculation 104 ml/min; Estimated Glomerular Filt Rate > 60; Glucose 129 mg/dL (65-110); Lipase 50 U/L (23-300); Potassium 4.1 mmol/L (3.4-5.0); Sodium 141 mmol/L (137-145); Total Protein 8.9 g/dL (6.3-8.2)
[2025-05-19 11:03] LABS: INR 1.1; Prothrombin Time 14.5 Seconds (11.1-14.7)
[2025-05-19 11:04] LABS: Partial Thromboplastin Time 27.8 Seconds (22.3-36.8)
[2025-05-19 11:07] LABS: Troponin I < 0.012 ng/mL (0.000-0.034)
[2025-05-19 11:22] LABS: Magnesium 2.2 mg/dL (1.6-2.3)
[2025-05-19 11:26] LABS: NT Pro B Type Natriuretic Pept 81 pg/mL (19.9-100)
--- OUTSIDE RECORDS SUMMARY | 2025-05-19 11:34 | XMS_ITS | Clinical Summary ---
Author Organization [facility] Address [address] [place] [address] Care Team Providers Care Measurement Operator Name Role Phone Unavailable Primary Care Provider [...]
--- OUTSIDE RECORDS SUMMARY | 2025-05-19 11:35 | XMS_ITS | Encounter Summary ---
Author Organization [facility] Address [address] [place] [address] Care Team Providers Care Desktop Analyst Name Role Phone Unavailable Primary Care Provider Unavailabl e Encounter Details Date Type Department Care Team (Latest Contact Info) Description 07/20/2018 Abstract [facility] Medical Group , Generic Conversion, [...]
--- NOTE | 2025-05-19 11:41 | PC.NURSE ---
Per EDP, Dr. Holt, patient ok to take home PO sotalol dose that they have on their person. Water provided.
[2025-05-19 13:10] VITALS: BP 154/86; PULSE 88; RESP 14; TEMP 36.6; O2SAT 100
== END 2025-05-19 13:23 | disposition home or self-care (01) ==
PROVIDERS: Emergency Provider Emergency Medicine
DX: R07.89 Other chest pain (principal); R00.2 Palpitations; R06.02 Shortness of breath; I48.91 Unspecified atrial fibrillation; Z79.899 Other long term (current) drug therapy; R94.31 Abnormal electrocardiogram [ECG] [EKG]
CPT/HCPCS: 36415; 71046; 80053; 83690; 83735; 83880; 84484; 85025; 85610; 85730; 93005; 99284